=== PATIENT | male | born 1970 | race Caucasian/White ===

== ENCOUNTER → 2024-06-07 12:50 | Outpatient (REF) | payer BC, SELFPAY | LOC: RCS 12:50 | PROVIDERS: ATTENDING PHYSICIAN Nurse Practitioner Gerontology; FAMILY PHYSICIAN Family Medicine | DX: Z98.890 Other specified postprocedural states (principal); Q25.49 Other congenital malformations of aorta | CPT/HCPCS: 93306 ==